=== PATIENT | male | born 2000 | race Caucasian/White ===

== ENCOUNTER 2021-02-04 08:49 | Emergency (ER) | payer SELFPAY ==
[2021-02-04 08:58] VITALS: BP 138/97; PULSE 117; RESP 18; TEMP 36.8; O2SAT 98; BMI 20.3
--- NOTE | 2021-02-04 09:02 | XRR_ITS ---
PROCEDURE INFORMATION: Exam: XR Lumbosacral Spine Exam date and time: 02/04/2021 9:16 AM Age: 20 years old Clinical indication: Pain and injury or trauma; Fall; Blunt trauma (contusions or hematomas); Low back pain TECHNIQUE: Imaging protocol: XR of the lumbosacral spine. Views: 2 or 3 views. COMPARISON: No relevant prior studies available. FINDINGS: Bones/joints: Normal. No acute fracture. Normal alignment. Soft tissues: Unremarkable. XR/XR lumbar spine 2-3V* [id number] IMPRESSION: No acute findings.
--- NOTE | 2021-02-04 09:02 | XRR_ITS ---
PROCEDURE INFORMATION: Exam: XR Right Hip Exam date and time: 02/04/2021 9:16 AM Age: 20 years old Clinical indication: Pain and injury or trauma; Fall; Blunt trauma (contusions or hematomas); Hip pain; Right hip TECHNIQUE: Imaging protocol: XR Right hip. Views: 1 view hip with pelvis when performed. COMPARISON: No relevant prior studies available. FINDINGS: Bones/joints: Unremarkable. No acute fracture. Soft tissues: Unremarkable. XR/XR hip RT 2-3V wo/w pel* [id number] IMPRESSION: No significant abnormality.
[2021-02-04] MEDS: ketorolac 30 mg/mL INJ IVP (09:23)
[2021-02-04] MEDS: orphenadrine 30 mg/mL Inj 2 mL 60 MG IVP (09:27)
[2021-02-04 09:32] VITALS: RESP 20; O2SAT 96
[2021-02-04] MEDS: morphine 4 mg/mL SDV 1 mL IVP (09:32)
--- NOTE | 2021-02-04 09:37 | W.ED.FALL ---
HPI - Fall General: Chief Complaint: Fall Stated Complaint: FALL, BACK PAIN Time Seen by Provider: 02/04/21 08:51 History of Present Illness: HPI Narrative: 20-year-old male presents emergency room complaining of left hip and back pain. He recently slipped or stumbled and fell yesterday landing on the left side is brought to the exam room by wheelchair. He did admit to being weightbearing after this happened. No previous injuries to the hip or back in the past. He denies striking his head or any other injury. He states he was simply standing when he fell he was not on any elevated platform. Denies any hematuria denies any abdominal or chest pain difficulty breathing. MD complaint: fall Onset (ago): minute(s) Fall from: standing Loss of consciousness: None Prolonged down time: no Associated symptoms-after fall: Denies abdominal pain or chest pain Review of Systems Const: Denies: fever(s), chills, body aches, change in appetite, fatigue or malaise ENMT: Denies: throat pain, ear or mastoid pain, nasal discharge or nasal congestion Card: Denies: chest pain, edema, dyspnea on exertion or orthopnea Resp: Denies: dyspnea, productive cough or non-productive cough GI: Denies: abdominal pain, nausea, vomiting, hematemesis, coffee ground emesis, diarrhea, constipation, bloating, hematochezia or melena : Denies: flank pain, dysuria, urinary frequency or urinary urgency Skin/Breast: Denies: rash or pruritus Physical Exam Const: COMMON NORMALS: no acute distress GENERAL APPEARANCE: cooperative and comfortable ORIENTATION/CONSCIOUSNESS: Yes awake, Yes oriented to person, Yes oriented to place and Yes oriented to time HENMT: COMMON NORMALS: normocephalic, atraumatic and hearing grossly normal bilaterally HEAD & SCALP: normocephalic and atraumatic Neck/C-Spine: COMMON NORMALS: no JVD Resp: COMMON NORMALS: normal respiratory effort, No retractions, No use of accessory muscles and clear to auscultation bilaterally AUSCULTATION: clear to auscultation bilaterally Cardio: COMMON NORMALS: no JVD, regular rate, regular rhythm and No murmurs present (Cardio) RATE: regular rate RHYTHM: regular rhythm GI: COMMON NORMALS: Soft to palpation and No hepatosplenomegaly present AUSCULTATION: Yes normoactive bowel sounds PALPATION: Yes Soft to palpation, No Tenderness to palpation present (GI), No Guarding due to palpation present (GI) and Yes No hepatosplenomegaly present Extremity: COMMON NORMALS: normal to inspection, capillary refill normal, no clubbing, cyanosis or edema, no calf tenderness and no pedal edema Neuro: SENSORIUM/ORIENTATION: Yes oriented to person, Yes oriented to place and Yes oriented to time DEEP TENDON REFLEXES: Right patellar reflex intensity grade: 2+ and Left patellar reflex intensity grade: 2+ OTHER: Right leg raising negative bilaterally dorsum plantar flex strength is 5/5 Skin: COMMON NORMALS: no rashes or lesions noted GENERAL SKIN EXAM: no rashes or lesions noted Course Vital Signs: Vital signs: Vital Signs Temperature 98.2 F 02/04/21 08:58 Pulse Rate 92 02/04/21 11:39 Respiratory Rate 16 02/04/21 11:39 Blood Pressure 110/53 02/04/21 11:39 Pulse Oximetry 96 02/04/21 11:39 MDM - Fall MDM Narrative: Medical decision making narrative: No acute fracture found. We will go ahead and discharge the patient home he has no sign of neural impingement no sign of cauda equina syndrome.. Patient had a friend with him who is advocating that he have an MRI of his back in the emergency room. Discussed with him that at this point is not indicated he has no sign of neural impingement this is due to an acute event there is no fractures visible on the plain films. He can be safely discharged home with pain control and should follow-up with his primary care if worsens can consider advanced imaging at that time. Lab Data: Labs: Lab Results 02/04/21 02/04/21 02/04/21 Range/Units 09:38 09:38 10:10 WBC 8.9 (4.5-13.0) 10^3/ uL RBC 5.26 (4.1-5.3) 10^6/u L Hgb 16.3 (11.7-16.6) g/dL Hct 48.4 (42.0-52.0) % MCV 92.0 (80-94) fL MCH 31.0 (28.0-34.0) pg MCHC 33.7 (30.0-36.0) g/dL RDW 11.9 L (12.1-15.1) % Plt Count 256 (130-400) 10^3/c mm MPV 9.4 (7.4-10.4) fL Neut % (Auto) 58.0 % Lymph % (Auto) 33.0 % Upson % (Auto) 4.9 % Eos % (Auto) 2.0 % Baso % (Auto) 1.9 % Neut # (Auto) 5.16 (1.8-8.0) 10^3/u L Lymph # (Auto) 2.9 (1.5-6.5) 10^3/u L Upson # (Auto) 0.4 (0.2-0.9) 10^3/u L Eos # (Auto) 0.2 (0.0-0.8) 10^3/u L Baso # (Auto) 0.2 H (0.0-0.1) 10^3/u L Nucleated RBC % (a uto) 0 % Nucleated RBCs # 0.0 /100WBC Sodium 140 (136-145) mmol/L Potassium 3.8 (3.5-5.1) mmol/L Chloride 97 L (98-107) mmol/L Carbon Dioxide 21 L (22-29) mmol/L Anion Gap 25.8 H (5-19) BUN 14 (6-20) mg/dL Creatinine 0.9 (0.7-1.2) mg/dL GFR Calculation 107.6 (90-130) mL/min Glucose 64 L (65-115) mg/dL Calculated Osmolal ity 289 (285-295) mOsm/k g Calcium 9.3 (8.5-10.5) mg/dL Total Bilirubin 0.5 (0.15-1.2) mg/dL AST 39 (0-40) U/L ALT 17 (0-41) U/L Alkaline Phosphata se 86 (40-130) IU/L Total Protein 8.1 (6.6-8.7) g/dL Albumin 4.8 (3.5-5.2) g/dL Globulin 3.3 (1.3-4.6) g/dL Urine Color Yellow (Yellow) Urine Appearance Clear (CLEAR) Urine pH 5 (5-7) Ur Specific Gravit y 1.030 (1.005-1.030) Urine Protein Trace (Negative) Urine Glucose (UA) Norm (Normal) Urine Ketones 1+ H (Negative) Urine Blood Neg (Negative) Urine Nitrate Negative (Negative) Urine Bilirubin Neg (Negative) Urine Urobilinogen Norm (Negative) mg/dL Ur Leukocyte Keesha ase Negative (Negative) Urine RBC None (0-2) /hpf Urine WBC None (0-5) /hpf Ur Squamous Epith Cells 5-10 H (0-5) /hpf Amorphous Sediment Not Reportable Urine Bacteria Trace (NONE) /hpf Urine Mucus Trace /hpf Discharge Plan Discharge Patient Disposition: Home Clinical Impression: Fall Condition: Stable Prescriptions: New diclofenac sodium 75 mg tablet,delayed release (DR/EC) 75 mg PO Q12H PRN (Reason: pain) Qty: 20 RF: 0 tizanidine 4 mg capsule 4 mg PO Q6H PRN (Reason: muscle spasticity) Qty: 20 RF: 0 Discharge Orders: Discharge ED (Routine); Ordered 02/04/21 Ordered By: Donal Hawk Discharge Diet: Usual diet Discharge Activity: Increase activity as tolerated Patient Instructions: Opioid Safety Activity Restrictions/Additional Instructions: Increase activity as tolerated if worsens follow-up with your PCP for further evaluation. Coding Level of Care Code ED [employer] for Kandice Rubio
[2021-02-04 09:45] VITALS: BP 125/67; PULSE 101; RESP 16; O2SAT 97
[2021-02-04 09:52] LABS: Basophils # 0.2 10^3/uL (0.0-0.1); Basophils % 1.9 %; Eosinophils # 0.2 10^3/uL (0.0-0.8); Hematocrit 48.4 % (42.0-52.0); Hemoglobin 16.3 g/dL (11.7-16.6); Lymphocytes # 2.9 10^3/uL (1.5-6.5); Mean Corpuscular HGB Conc 33.7 g/dL (30.0-36.0); Mean Platelet Volume 9.4 fL (7.4-10.4); Monocytes # 0.4 10^3/uL (0.2-0.9); Monocytes % 4.9 %; Neutrophils # 5.16 10^3/uL (1.8-8.0); Nucleated Red Blood Cells % 0 %; Platelet Count 256 10^3/cmm (130-400); Red Blood Count 5.26 10^6/uL (4.1-5.3); Red Cell Distribution Width 11.9 % (12.1-15.1); White Blood Count 8.9 10^3/uL (4.5-13.0)
--- NOTE | 2021-02-04 09:55 | PC.NURSE ---
patient to diagnostic imaging
[2021-02-04 10:30] LABS: Add Urine Culture? No; Add Urine Microscopic? YES; Bacteria Urine TRACE /hpf; Bilirubin Urine Neg (Negative); Blood Urine Neg (Negative); Glucose Urine UA Norm (Normal); Ketones Urine 1+ (Negative); Leukocyte Esterase Urine Negative (Negative); Mucus Urine TRACE /hpf; Nitrate Urine Negative (Negative); Protein Urine Trace (Negative); Urine Appearance Clear (CLEAR); Urine Color Yellow (Yellow); Urobilinogen Urine Norm (Negative); pH Urine 5 (5-7)
[2021-02-04 10:37] LABS: Alanine Aminotransferase 17 U/L (0-41); Albumin Level 4.8 g/dL (3.5-5.2); Alkaline Phosphatase 86 IU/L (40-130); Blood Urea Nitrogen 14 mg/dL (6-20); Calcium 9.3 mg/dL (8.5-10.5); Carbon Dioxide 21 mmol/L (22-29); Chloride 97 mmol/L (98-107); Globulin 3.3 g/dL (1.3-4.6); Glomerular Filtration Rate 107.6 mL/min (90-130); Glucose 64 mg/dL (65-115); Osmolality Calculated 289 mOsm/kg (285-295); Sodium 140 mmol/L (136-145); Total Bilirubin 0.5 mg/dL (0.15-1.2); Total Protein 8.1 g/dL (6.6-8.7)
[2021-02-04 10:38] LABS: Anion Gap 25.8 (5-19); Aspartate Amino Transferase 39 U/L (0-40); Potassium 3.8 mmol/L (3.5-5.1)
[2021-02-04 11:38] VITALS: BP 110/53; PULSE 92; RESP 16; O2SAT 96
[2021-02-04 11:39] VITALS: BP 110/53; PULSE 92; RESP 16; O2SAT 96
--- NOTE | 2021-02-04 11:40 | DCPLANNER ---
manager part was asked to speak with patient about getting established with a primary care physician. manager part spoke with patient, he stated that he has seen Dr. Fajardo in the past, and would like to see him. manager part called [facility], was told that the last time he was seen at the clinic was in 2012 and that he was not established with anyone at this time, that he could be seen by one of the diagnostics tech, and that the patients information would need to be sent to one of the [facility] [employer] [facility]'s to see if they would accept patient. manager part asked to speak with Bethany who told shoe parts caser that she would schedule a follow up appointment for patient in the past. manager part was unable to speak with Bethany, and unable to schedule a follow up appointment for patient at this time. Was told that if patient wanted to be seen that he would have to call the clinic to be established. manager part spoke with patient and explained this to the patient, shoe parts caser offered to get patient established at [facility]. Patient stated that he would just call [facility] and get established at that clinic if he needs an appointment.
== END 2021-02-04 11:40 | disposition home or self-care (01) ==
PROVIDERS: Emergency Provider Family Medicine
DX: M54.9 Dorsalgia, unspecified (principal)
CPT/HCPCS: 72100; 73502; 80053; 81001; 85025; 96374; 96375; 99283; J1885; J2270; J2360

== ENCOUNTER → 2022-05-10 11:32 | Outpatient (BNVA) | payer SELFPAY | PROVIDERS: Visit Provider Registered Nurse Neonatal Intensive Care | DX: S69.91XA Unspecified injury of right wrist, hand and finger(s), initial encounter (principal); W19.XXXA Unspecified fall, initial encounter; Y93.68 Activity, volleyball (beach) (court) | CPT/HCPCS: 73110 ==